=== PATIENT | female | born 1990 | race Caucasian/White ===

== ENCOUNTER → 2018-04-25 | Outpatient (CLI) | payer MEDICAID | LOC: BMCIMAGING 11:25 | DX: Z03.89 Encounter for observation for other suspected diseases and conditions ruled out (principal); Z98.82 Breast implant status ==

== ENCOUNTER 2018-05-22 18:29 | Emergency (ER) | payer MEDICAID ==
--- NOTE | 2018-05-22 18:28 | EDPHY ---
HPI/HX/ROS/PE/MDM Narrative: CHIEF COMPLAINT: "I took too much Ritalin" HPI: This patient is a 28-year-old female with history of bipolar disorder. She arrives via EMS for evaluation of tachycardia and anxiety after taking a large quantity of her prescribed Ritalin and Adderall. She recently switched her prescription for her sleeping medication and did not like the effects, so last night around 11:30pm, she tried to counteract this by taking 90mg of instant- release Ritalin and 5mg of instant-release Adderall. She has felt tachycardic and anxious throughout the day and noted some brief episodes of chest pain (now completely resolved). The tachycardia and anxiety persisted into the evening so she called EMS. She denies any suicidal or homicidal ideation and admits she knows she took too much of the Ritalin. She is currently feeling better and more relaxed. Per EMS, she was tachycardic in transport around 130. Vitals otherwise stable. She is not currently tachycardic. REVIEW OF SYSTEMS: A comprehensive 10 system review of systems is otherwise negative aside from elements mentioned in the history of present illness and medical decision making. PMH: Bipolar disorder. Takes Wellbutrin, Ritalin, sleeping medication. SOCIAL HISTORY: Single. Employed. Lives in [place]. PHYSICAL EXAM: General:Patient is alert, in no acute distress. ENT:Eyes are normal to inspection. ENT inspection normal. Neck: Normal inspection. Full range of motion. Respiratory:No respiratory distress. Breath sounds normal bilaterally. Cardiovascular: Regular rate and rhythm. Strong peripheral pulses. Normal cap refill. Abdomen:The abdomen is nontender to palpation. There are no peritoneal signs. There are normal bowel sounds. Back: Normal to inspection. No tenderness to palpation. Skin: Normal color. No rash. Warm and dry. Extremities: Normal appearance. Full range of motion. Neuro: Oriented x3. Normal motor function. Normal sensory function. ED Course: 28 y/o female presents with tachycardia and anxiety after taking 90mg of Ritalin and 5mg of Adderall yesterday evening around 11:30. Patient states she is feeling much more relaxed now. Plan for EKG, labs including CBC, chemistries , BHCG. Plan to administer 1mg IV Ativan and 1L IV NS for symptom relief. 18:34 EKG was ordered and interpreted by myself. Please see [email or web address] for official reading. Sinus rhythm, rate 84. Short CT interval noted. The patient will follow up with cardiology regarding this. Laboratory studies largely unremarkable. BHCG negative. 20:00 Patient is feeling well and is comfortable with discharge home. Plan to discharge home in good condition. She will follow up with cardiology as above. She was counseled to not take excess prescription medications and to follow up with her prescribing provider regarding concerns with her medication regimen. Follow up and return precautions discussed. She is comfortable with this plan. - Data Points Laboratory Results: Laboratory Results 05/22/18 18:40 05/22/18 18:40 05/22/18 05/22/18 05/22/18 18:40 18:40 18:40 WBC 5.34 10^3/uL 10^3/uL (3.80-9.50) RBC 4.49 10^6/uL 10^6/uL (4.18-5.33) Hgb 13.5 g/dL g/dL (12.6-16.3) Hct 38.2 % % (38.0-47.0) MCV 85.1 fL fL (81.5-99.8) MCH 30.1 pg pg (27.9-34.1) MCHC 35.3 g/dL g/dL (32.4-36.7) RDW 11.6 % % (11.5-15.2) Plt Count 223 10^3/uL 10^3/uL (150-400) MPV 10.1 fL fL (8.7-11.7) Neut % (Auto) 69.4 % % (39.3-74.2) Lymph % (Auto) 19.9 % % (15.0-45.0) [place] % (Auto) 9.2 % % (4.5-13.0) Eos % (Auto) 0.9 % % (0.6-7.6) Baso % (Auto) 0.6 % % (0.3-1.7) Nucleat RBC Rel Count 0.0 % % (0.0-0.2) Absolute Neuts (auto) 3.71 10^3/uL 10^3/uL (1.70-6.50) Absolute Lymphs (auto) 1.06 10^3/uL 10^3/uL (1.00-3.00) Absolute Monos (auto) 0.49 10^3/uL 10^3/uL (0.30-0.80) Absolute Eos (auto) 0.05 10^3/uL 10^3/uL (0.03-0.40) Absolute Basos (auto) 0.03 10^3/uL 10^3/uL (0.02-0.10) Absolute Nucleated RBC 0.00 10^3/uL 10^3/uL (0-0.01) Immature Gran % 0.0 % % (0.0-1.1) Immature Gran # 0.00 10^3/uL 10^3/uL (0.00-0.10) Sodium 132 mEq/L L mEq/L (135-145) Potassium 3.2 mEq/L L mEq/L (3.5-5.2) Chloride 102 mEq/L mEq/L (97-110) Carbon Dioxide 19 mEq/l L mEq/l (22-31) Anion Gap 11 mEq/L mEq/L (6-14) BUN 11 mg/dL mg/dL (7-23) Creatinine 0.8 mg/dL mg/dL (0.6-1.0) Estimated GFR > 60 Glucose 93 mg/dL mg/dL (70-100) Calcium 9.5 mg/dL mg/dL (8.5-10.4) Beta HCG, Qual NEGATIVE Medications Given: Discontinued Medications Sodium Chloride (Ns) 1,000 mls @ 0 mls/hr IV EDNOW ONE; Wide Open PRN Reason: Protocol Stop: 05/22/18 18:31 Last Admin: 05/22/18 18:40 Dose: 1,000 mls Lorazepam (Ativan Injection) 1 mg IVP EDNOW ONE Stop: 05/22/18 18:32 Last Admin: 05/22/18 18:40 Dose: 1 mg General Initial Vital Signs: Initial Vital Signs Temperature (C) 36.4 C 05/22/18 18:26 Heart Rate 105 H 05/22/18 18:26 Respiratory Rate 18 05/22/18 18:26 Blood Pressure 114/85 H 05/22/18 18:26 O2 Sat (%) 99 05/22/18 18:26 O2 Delivery Mode Room Air Home Medications: Medication Instructions Recorded Adderall 10 MG (*) 05/22/18 Ritalin 10mg (*) 05/22/18 Sleep Aid 05/22/18 Wellbutrin Sr 05/22/18 Departure - Departure Disposition: Home, Routine, Self-Care Clinical Impression: Tachycardia, Ritalin use disorder, mild, abuse Condition: Good Instructions: Methylphenidate (By mouth), Tachycardia (ED) Additional Instructions: Please follow up with cardiology regarding the short CT interval noted on your EKG today. We have referred you to our photo lab specialist mental health nurse practitioner. Please take your prescription medications only as directed. Do not take extra medications. Please consult with your primary prescriber for concerns regarding your medication regimen. Return to the emergency department for recurrent chest pain, fever, difficulty breathing, or other worsening of condition. Referrals: Niles Jacobs MD [Medical Doctor] - As per Instructions Patient,NotPresent [Unknown] - As per Instructions Report Scribed for: Antione Miller Report Scribed by: Margaret Suarez Date of Report: 05/22/18 Time of Report: 18:44 Physician Review and Approval Statement: Portions of this note were transcribed by an ED scribe. I personally performed the history, physical exam, and medical decision making; and confirm the accuracy of the information in the transcribed note.
[2018-05-22] MEDS ORDERED: NS 1,000 ML IV ONE (18:30)
[2018-05-22] MEDS ORDERED: LORazepam 2 MG/ML INJ IVP ONE (18:31)
[2018-05-22 18:49] LABS: PLATELET COUNT 223 10^3/uL (150-400)
[2018-05-22 20:13] VITALS: BP 114/86
== END 2018-05-22 20:12 | disposition home or self-care (01) ==
LOC: EDUNIT#
DX: F15.10 Other stimulant abuse, uncomplicated (principal); R00.0 Tachycardia, unspecified; E86.9 Volume depletion, unspecified
CPT/HCPCS: 96374; J2060